=== PATIENT | male | born 1960 | race Caucasian/White ===

== ENCOUNTER → 2016-12-12 | Outpatient (CLI) | payer BC ==
[~2016-12-12] MED LIST: NS 100 ML IV 100 ML IV ONE
--- NOTE | 2016-12-12 11:48 | CT ---
HISTORY: Epigastric pain, left inguinal pain Study: CT abdomen and pelvis with contrast Comparison: None Technique: Multiple axial images of the abdomen and pelvis were obtained with IV contrast. Oral contrast was a dministered. Dose reduction techniques including Automated Exposure Control (AEC) and adjustment of mA and kV were utilized. Findings: The visualized lung bases are clear. There is evidence of previous fundoplication with intrathoracic migration of the wrap. The liver, spleen, pancreas, kidneys, and adrenal glands are unremarkable in their CT appearance. The gallbladder is surgically removed. No renal calculi or obstructive uropath y. No free intraperitoneal air. No evidence of intestinal obstruction or inflammation. Normal appendix. No ascites. Previous hernia repair is suspected in the bilateral inguinal regions. There is a right hip arthropl asty in place. There are degenerative changes of the lumbosacral spine. The urinary bladder appears unremarkable. The vascular structures are unremarkable. No pathologically enlarged lymph nodes are i dentified. IMPRESSION: 1. Previous Juanita fundoplication with intra thoracic migration of the wrap. He 2. No acute findings identified within the abdomen or pelvis. 3. Additional surgical changes as described. Reported By:
== END ==
LOC: RAD 10:01
PROVIDERS: ATTEND Specialist
DX: R10.13 Epigastric pain (principal); R10.32 Left lower quadrant pain; Z98.890 Other specified postprocedural states
CPT/HCPCS: 74177; A4222

== ENCOUNTER → 2016-12-13 | Outpatient (CLI) | payer BC ==
--- NOTE | 2016-12-13 12:07 | NM ---
BONE SCAN CLINICAL INDICATION: Neck pain PROCEDURE: Approximately 2-4 hours following intravenous administration of 25.3 mCi of [id number], whole body delayed planar images were obtained from the anterior and posterior projections. COMPARISON: None FINDINGS: There is normal by distribution of the radiotracer within the axial and appendicular skeleton. Mild ly increased uptake in the region of the mid and lower cervical spine. There is normal by distribution of the radiotracer within the genitourinary system and soft tissues. IMPRESSION: 1. Mild uptake in the mid and lower cervical spine. This is nonspecific depending on the date of pa tient's surgery. This may be normal versus degenerative versus sequelae of hardware loosening. Reported By:
== END ==
LOC: RAD 08:21
PROVIDERS: ATTEND Neurological Surgery
DX: M43.22 Fusion of spine, cervical region (principal); M50.31 Other cervical disc degeneration, high cervical region; M50.321 Other cervical disc degeneration at C4-C5 level
CPT/HCPCS: 78306

== ENCOUNTER → 2016-12-19 | Outpatient (CLI) | payer BC ==
--- NOTE | 2016-12-19 13:37 | RAD ---
Fluoroscopic guided lumbar puncture with myelogram Indication: Disk degeneration, neck pain Technique: The procedure was discussed in detail with the patient, including risks, benefits, and al ternatives. All questions were answered and formal consent was signed. The L3-4 level was localized with fluoroscopy and marked and the skin was prepped and draped in the normal sterile fashion. Local anesthesia was achieved using 1% lidocaine without epinephrine. A 22 gauge spinal needle was insert ed into the thecal sac and clear spinal fluid was observed. 10 cc of contrast was then injected intr athecally. The patient tolerated procedure, without complication. Fluoroscopy time 1.5 min. Impression: Successful fluoroscopic guided lumbar puncture with myelogram. Reported By:
--- NOTE | 2016-12-20 16:17 | CT ---
CT myelogram of the cervical spine Indication: Disc degeneration, neck pain Comparison: 11/21/2016 Technique: CT images of the cervical spine were obtained after intrathecal contrast administration. Automatic exposure control was utilized. Findings: Cervical spine alignment is normal, with evidence of previous fusion spanning C4-T1 with i nterbody spacers and bony ankylosis of the fused levels. There are bilateral Pichardo rods extendi ng from the C5 through T1 levels, with the hooks present bilaterally at C6 and T1; the rods extend s lightly above the hooks at C6 and appear to abut the bilateral C5 lamina. Anterior fusion hardware a t C7-T1 appears normal. Posterior decompression at C5-C7 is noted, with a 4.7 x 5.8 x 6.4 cm (AP by transverse by longitudinal) low-density circumscribed fluid collection within the soft tissues overl arleen the C5-T1 posterior elements, unchanged from prior. The visualized lower brain and craniocervic al junction are grossly unremarkable. C2-3: There is mild bilateral uncovertebral and right-sided facet DJD, without significant spinal ca nal or foraminal narrowing. C3-4: There is moderate discogenic and uncovertebral DJD with broad-based disc bulge and asymmetric spondylitic formation, worse on the left, resulting in moderate to severe narrowing of the left late ral recess and neural foramen, with mild right neural foraminal narrowing. There is mild narrowing o f the spinal canal diameter. C4-5, C5-6: Previous fusion with mild bilateral neural foraminal narrowing, without significant spin al canal narrowing appreciated. C6-7, C7-T1: Previous fusion without significant foraminal or canal narrowing. T1-T2: There is moderate discogenic degenerative disease without significant foraminal or canal narr owing. The visualized lung apices are clear. Impression: 1. Extensive postsurgical changes as above, with previous fusion of C4-T1, bilateral Pichardo rods spanning the cervicothoracic junction, and anterior fusion hardware at C7-T1. 2. Degenerative changes at C3-4 and T1-2, with narrowing of the left lateral recess and neural nicholas en at C3-4. 3. Low-density circumscribed fluid collection posterior to the C5-T1 levels is most suggestive for a postoperative seroma; however, abscess cannot be excluded. Correlation recommended. Lack of intrath ecal contrast extension argues against pseudomeningocele. Reported By:
== END ==
LOC: RAD 08:17
PROVIDERS: ATTEND Neurological Surgery
DX: M54.2 Cervicalgia (principal); M50.31 Other cervical disc degeneration, high cervical region
CPT/HCPCS: 36415; 62302; 72126; 77002; 85610